=== PATIENT | male | born 1980 | race Two or more races ===

== ENCOUNTER 2022-11-29 22:34 | Emergency (ER) | payer SELFPAY ==
[2022-11-29 22:42] VITALS: BP 117/63; PULSE 68; RESP 18; TEMP 98.4; BMI 26.6
[2022-11-29] MEDS ORDERED: ACETAMINOPHEN 500 MG TABLET (FP) PO ONE (23:23)
[2022-11-29] MEDS ORDERED: ACETAMINOPHEN 500 MG TABLET (FP) ONE (23:25)
== END 2022-11-30 00:42 | disposition home or self-care (01) ==
LOC: FER 22:34
DX: S93.602A Unspecified sprain of left foot, initial encounter (principal); W50.0XXA Accidental hit or strike by another person, initial encounter
CPT/HCPCS: 73630-TC-LT; 99283-25